=== PATIENT | female | born 1980 | race American Indian/Alaskan Native ===

== ENCOUNTER 2017-01-04 17:01 | Emergency (ER) | payer MEDICAID ==
--- NOTE | 2017-01-04 18:06 | Emergency Department Report ---
Entered by CLAIRE AGUILAR, acting as scribe for BATOOL RENE PA. Chief Complaint: Chest Pain Stated Complaint: CHEST PAIN Time Seen by Provider: 01/04/17 17:24 - HPI History of Present Illness: Pt c/o a vaginal discharge for 2 days. Patient states she had unprotected sex two weeks ago. After two days of intercourse, she began having a discharge. Pt states she was seen by a provider and prescribed antibiotics for bacterial vaginosis. She notes she took those left over antibiotics for this episode of vaginal discharge with no relief. Notes the vaginal discharge is similar to her bacterial vaginosis episode. Patient also c/o dull LLQ abdominal pain that radiates to her chest. Reports 7/ 10 left sided chest pain that also radiates down her left arm. Denies vaginal bleeding. Denies SOB Denies urinary urgency and frequency Notes she had an ovarian cyst that burst 3 months ago. Notes she has an IUD in place, which she's been having problems with. PMHx of asthma Denies PMHx of HTN and CAD - ROS Review of Systems: All system are negative unless stated in HPI above. - Exam Vital Signs: Vital Signs 01/04/17 17:13 Temperature 98.4 F Pulse Rate 83 Respiratory 16 Rate Blood Pressure 120/71 O2 Sat by Pulse 99 Oximetry Physical Exam: General: well nourished, well developed, 36 year old female in no acute distress and nontoxic in appearance Abdomen: Soft, normal bowel sounds in all quadrants and negative CVA tenderness bilaterally. No guarding or rebound. Tender to palpation to LLQ Lungs: Clear to auscultation bilaterally, no rhonchi, wheezes, or rales. Normal work of breathing. No use of accessory muscles Extremities: No CCE. +2 pulses. No neurovascular compromise. No lower extremity swelling or tenderness. Chest/Cardiovascular: No chest wall tenderness or deformity. S1-S2, regular rate , regular rhythm. No murmurs. MSE screening note: Focused history and physical exam performed. Due to findings the following was ordered: see below ED Medical Decision Making - Medical Decision Making MDM: Patient screened by provider in triage area. Appropriate protocol initiated. Patient to be seen by another provider in fast track. ED Disposition for MSE Condition: Stable This documentation as recorded by the scribe,CLAIRE AGUILAR,accurately reflects the service I personally performed and the decisions made by me,BATOOL RENE PA.
[2017-01-04 18:27] LABS: Bilirubin,Urine NEG (Negative); Blood,Urine NEG (Negative); Ketones,Urine NEG (Negative); Leukocyte Esterase,Urine NEG (Negative); Mucus,Urine FEW /HPF; Nitrite,Urine NEG (Negative); Protein,Urine <15 mg/dL mg/dL (Negative); WBC,Urine < 1.0 /HPF (0.0-6.0)
[2017-01-04 18:49] LABS: Basophils % (Auto) 0.4 % (0.0-1.8); Eosinophils % (Auto) 5.7 % (0.0-4.3); Hematocrit 39.7 % (30.3-42.9); Hemoglobin 13.3 gm/dl (10.1-14.3); Mean Corpuscular HGB Conc 34 % (30-34); Mean Corpuscular Hemoglobin 32 pg (28-32); Mean Corpuscular Volume 94 fl (79-97); Platelet Count 258 K/mm3 (140-440); Red Cell Distribution Width 14.1 % (13.2-15.2); White Blood Count 8.2 K/mm3 (4.5-11.0)
[2017-01-04 19:09] LABS: Anion Gap 17 mmol/L; BUN/Creatinine Ratio 11.42; Blood Urea Nitrogen 8 mg/dL (7-17); Calcium 8.9 mg/dL (8.4-10.2); Carbon Dioxide 25 mmol/L (22-30); Chloride 101.9 mmol/L (98-107); Glucose 90 mg/dL (65-100); Lipase 30 units/L (13-60); Potassium 4.2 mmol/L (3.6-5.0); Sodium 140 mmol/L (137-145)
--- NOTE | 2017-01-04 22:07 | Emergency Department Report ---
HPI - General Chief Complaint: Chest Pain Time Seen by Provider: 01/04/17 21:03 - HPI HPI: This is a 36-year-old -[place] female presents to the emergency department with complaint of chest pain and some vaginal discharge. Patient says that she had sex with a new partner and was using protection but the condom broke. Since that time she has been having some cloudy, yellowish knight discharge. She was treated in the past for bacterial vaginosis and thinks that it could be the same and therefore she took some leftover Flagyl she had. Since that time she started having some left-sided chest pain that has been going on for the past 1.5 weeks. She denies any shortness of breath, back pain , nausea, vomiting or diaphoresis. No recent travel or sick contacts at home. She denies tobacco or illicit drug use or abuse. Her primary care physician is Dr. Ingram and her CRUDE TESTER is Dr. Murillo. ED Past Medical Hx - Past Medical History Previous Medical History?: Yes Hx Hypertension: No Hx Congestive Heart Failure: No Hx Diabetes: No Hx Deep Vein Thrombosis: No Hx Renal Disease: No Hx Sickle Cell Disease: No Hx Seizures: No Hx Asthma: Yes Hx COPD: No Hx HIV: No - Surgical History Past Surgical History?: Yes Additional Surgical History: d&c - Social History Smoking Status: Current Every Day Smoker Substance Use Type: Alcohol - Medications Home Medications: Home Medications Medication Instructions Recorded Confirmed Last Taken Type Benzonatate [Tessalon Perles] 200 mg PO Q8HR PRN #15 capsule 11/24/14 01/04/17 Unknown Rx Fluticasone [Flonase] 1 spray NS QDAY #1 bottle 11/24/14 01/04/17 Unknown Rx traMADol [Ultram] 50 mg PO Q6HR PRN #12 tablet 11/24/14 01/04/17 Unknown Rx HYDROcodone/APAP 7.5-325 [[place] 1 each PO Q6HR PRN #12 tablet 05/13/15 01/04/17 Unknown Rx 7.5/325] Ondansetron [Zofran Odt] 4 mg SL Q6H PRN #8 tab.rapdis 05/13/15 01/04/17 Unknown Rx Cyclobenzaprine [Flexeril] 10 mg PO TID PRN #20 tablet 05/15/15 01/04/17 Unknown Rx metroNIDAZOLE 0.75% [Vandazole 1 applicator VG QHS #1 tube 01/05/17 Unknown Rx 0.75% VAGINAL] ED Review of Systems ROS: Stated complaint: CHEST PAIN Other details as noted in HPI Comment: All other systems reviewed and negative Constitutional: denies: chills, fever Eyes: denies: eye pain, eye discharge, vision change ENT: denies: ear pain, throat pain Respiratory: denies: cough, shortness of breath, wheezing Cardiovascular: chest pain. denies: palpitations Gastrointestinal: denies: abdominal pain, nausea, diarrhea Genitourinary: discharge. denies: dysuria, hematuria Musculoskeletal: denies: back pain, joint swelling, arthralgia Skin: denies: rash, lesions Neurological: denies: headache, weakness, paresthesias Physical Exam - Physical Exam Vital Signs: Vital Signs 01/04/17 01/04/17 01/04/17 17:13 18:43 18:45 Temperature 98.4 F Pulse Rate 83 76 72 Respiratory 16 12 Rate Blood Pressure 120/71 O2 Sat by Pulse 99 Oximetry 01/04/17 01/04/17 01/04/17 18:58 19:01 19:15 Temperature Pulse Rate 70 65 92 H Respiratory 18 12 23 Rate Blood Pressure 109/39 109/39 O2 Sat by Pulse 100 99 97 Oximetry 01/04/17 01/04/17 01/04/17 19:31 19:45 20:01 Temperature Pulse Rate 63 67 70 Respiratory 15 10 L 19 Rate Blood Pressure 109/39 109/39 109/39 O2 Sat by Pulse 98 98 99 Oximetry 01/04/17 01/04/17 01/04/17 20:15 20:31 20:45 Temperature Pulse Rate 70 67 60 Respiratory 14 20 11 L Rate Blood Pressure 109/39 109/39 109/39 O2 Sat by Pulse 98 99 100 Oximetry 01/04/17 01/04/17 21:01 21:15 Temperature Pulse Rate 67 63 Respiratory 11 L 11 L Rate Blood Pressure 109/39 109/39 O2 Sat by Pulse 99 100 Oximetry Physical Exam: GENERAL: The patient is well-developed well-nourished. HEENT: Normocephalic. Atraumatic. Extraocular motions are intact. Patient has moist mucous membranes. Pupils equal reactive to light bilaterally. NECK: Supple. Trachea is midline. CHEST/LUNGS: Clear to auscultation. There is no respiratory distress noted. HEART/CARDIOVASCULAR: Regular. There is no tachycardia. There is no gallop rub or murmur. ABDOMEN: Abdomen is soft, nontender. Patient has normal bowel sounds. There is no abdominal distention. SKIN: Skin is warm and dry. NEURO: The patient is awake, alert, and oriented. The patient is cooperative. The patient has no focal neurologic deficits. The patient has normal speech. MUSCULOSKELETAL: There is no tenderness or deformity. There is no limitation range of motion. There is no evidence of acute injury. : There is some malodorous thin white discharge seen in the vaginal vault. ED Course Vital Signs 01/04/17 01/04/17 01/04/17 17:13 18:43 18:45 Temperature 98.4 F Pulse Rate 83 76 72 Respiratory 16 12 Rate Blood Pressure 120/71 O2 Sat by Pulse 99 Oximetry 01/04/17 01/04/17 01/04/17 18:58 19:01 19:15 Temperature Pulse Rate 70 65 92 H Respiratory 18 12 23 Rate Blood Pressure 109/39 109/39 O2 Sat by Pulse 100 99 97 Oximetry 01/04/17 01/04/17 01/04/17 19:31 19:45 20:01 Temperature Pulse Rate 63 67 70 Respiratory 15 10 L 19 Rate Blood Pressure 109/39 109/39 109/39 O2 Sat by Pulse 98 98 99 Oximetry 01/04/17 01/04/17 01/04/17 20:15 20:31 20:45 Temperature Pulse Rate 70 67 60 Respiratory 14 20 11 L Rate Blood Pressure 109/39 109/39 109/39 O2 Sat by Pulse 98 99 100 Oximetry 01/04/17 01/04/17 21:01 21:15 Temperature Pulse Rate 67 63 Respiratory 11 L 11 L Rate Blood Pressure 109/39 109/39 O2 Sat by Pulse 99 100 Oximetry ED Medical Decision Making - Lab Data Result diagrams: 01/04/17 18:40 01/04/17 18:40 - EKG Data -: EKG Interpreted by Me EKG shows normal: sinus rhythm, axis, intervals, QRS complexes, ST-T waves Rate: normal - EKG Data When compared to previous EKG there are: previous EKG unavailable Interpretation: normal EKG - Radiology Data Radiology results: image reviewed interpreted by me: Chest x-ray did not show any acute process. Heart is normal shape and size. No effusions. No pneumothorax. No signs of pneumonia seen. - Medical Decision Making 36-year-old female presents the emergency department with 2 issues. First the patient thinks that she may be having bacterial vaginosis as she had some intercourse with a new partner and the condom broke and since then she's been having discharge. A pelvic exam was done and there was no lesions seen or any signs of PID. However there was some low-dose discharge that was tested on wet prep and positive for BV. Gonorrhea and chlamydia was sent and if positive the patient be contacted to be given Rocephin, azithromycin or doxycycline. The patient thinks that maybe her second complaint, the chest pain, started after she started the metronidazole pills and therefore we will try with the vaginal MetroGel instead. Regarding her chest discomfort, the patient was evaluated with physical exam, labs, imaging and EKG. Heart and lung sounds are normal auscultation. EKG did not show any signs of ST elevation OR. She has had negative troponins 2. She is very low on the heart score criteria. She has a YON score of 0. She is low on the Wells score criteria and negative on the pulmonary embolism rule out criteria. Probably reason the patient appears safe for discharge home. She will be given referral for cardiology for outpatient follow-up for her chest discomfort, which has been going on for almost 2 weeks, as well as from some complaints of palpitations. However she has been encouraged to return to the emergency department with any worsening of her symptoms or any acute distress. She understands and agrees to plan. - Differential Diagnosis costochondritis, OR, BV, Critical Care Time: No Critical care attestation.: If time is entered above; I have spent that time in minutes in the direct care of this critically ill patient, excluding procedure time. ED Disposition Clinical Impression: Bacterial vaginosis Chest pain Qualifiers: Chest pain type: unspecified Qualified Code(s): R07.9 - Chest pain, unspecified Disposition: DC-01 TO HOME OR SELFCARE Is pt being admited?: No Condition: Stable Instructions: Chest Pain (ED), Bacterial Vaginosis (ED) Additional Instructions: Please follow-up with a primary care physician or CRUDE TESTER in the next few days. I continue a referral for a local railroad signal and switch operator, Dr. Dinero, in case she would like to follow up regarding your chest pain and/or palpitations. Return to the emergency department with any worsening of her symptoms or any acute distress. The medication you have been prescribed for your bacterial vaginosis, Flagyl/ metronidazole, cannot be mixed with any alcohol or you will develop nausea, vomiting and/or further symptoms as there is a strong reaction between this medication and alcohol. Prescriptions: metroNIDAZOLE 0.75% [Vandazole 0.75% VAGINAL] 1 applicator VG QHS #1 tube Referrals: PRIMARY CARE, [Primary Care Provider] - 3-5 Days PATRICIA GARCIA MD [Staff Physician] - 3-5 Days Forms: STI Treatment and Prevention Time of Disposition: 00:16
[2017-01-05 00:44] VITALS: BP 100/65
--- NOTE | 2017-01-05 08:02 | XRay Report ---
CHEST TWO VIEWS: 01/04/17 19:13 CLINICAL: Chest pain and shortness of breath. COMPARISON: 05/15/15 FINDINGS: Normal heart and pulmonary vasculature. The lungs are normally expanded and clear. The bones and soft tissues are normal. IMPRESSION: Normal chest.
== END 2017-01-05 00:42 | disposition home or self-care (01) ==
LOC: ED 17:01
DX: N76.0 Acute vaginitis (principal); R07.9 Chest pain, unspecified; J45.909 Unspecified asthma, uncomplicated; F17.200 Nicotine dependence, unspecified, uncomplicated
CPT/HCPCS: 36415; 71020; 80048; 81001; 83690; 84484; 84703; 85025; 85379; 87210; 87591; 93005; 93010

== ENCOUNTER 2017-02-03 15:04 | Emergency (ER) | payer MEDICAID ==
[2017-02-03 15:41] VITALS: BP 126/72
[2017-02-03 16:04] LABS: Basophils % (Auto) 0.4 % (0.0-1.8); Hematocrit 39.4 % (30.3-42.9); Hemoglobin 13.5 gm/dl (10.1-14.3); Mean Corpuscular HGB Conc 34 % (30-34); Mean Corpuscular Hemoglobin 32 pg (28-32); Mean Corpuscular Volume 93 fl (79-97); Platelet Count 254 K/mm3 (140-440); Red Blood Count 4.25 M/mm3 (3.65-5.03); Red Cell Distribution Width 13.6 % (13.2-15.2); White Blood Count 7.9 K/mm3 (4.5-11.0)
[2017-02-03 16:28] LABS: Alanine Aminotransferase 14 units/L (7-56); Albumin 4.1 g/dL (3.9-5); Albumin/Globulin Ratio 1.3 %; Alkaline Phosphatase 72 units/L (35-129); Anion Gap 19 mmol/L; BUN/Creatinine Ratio 7.14; Blood Urea Nitrogen 5 mg/dL (7-17); Calcium 8.4 mg/dL (8.4-10.2); Carbon Dioxide 22 mmol/L (22-30); Chloride 103.2 mmol/L (98-107); Glucose 96 mg/dL (65-100); Potassium 3.7 mmol/L (3.6-5.0); Sodium 140 mmol/L (137-145); Total Protein 7.3 g/dL (6.3-8.2)
[2017-02-03 16:29] LABS: Bilirubin,Direct < 0.2 mg/dL (0-0.2); Bilirubin,Indirect 0.2 mg/dL
[2017-02-03 16:51] LABS: Bacteria,Urine 1+ /HPF (Negative); Bilirubin,Urine NEG (Negative); Blood,Urine NEG (Negative); Ketones,Urine NEG (Negative); Leukocyte Esterase,Urine NEG (Negative); Mucus,Urine 3+ /HPF; Nitrite,Urine NEG (Negative); Urobilinogen,Urine < 2.0 mg/dL (<2.0)
[2017-02-03] MEDS ORDERED: ZOFRAN ODT PO ONE (21:29)
--- NOTE | 2017-02-03 21:33 | Emergency Department Report ---
ED Abdominal Pain HPI - General Chief Complaint: Abdominal Pain Stated Complaint: CHILLS/DIARRHEA/SWEATS/ Time Seen by Provider: 02/03/17 21:01 Source: patient Mode of arrival: Ambulatory Limitations: No Limitations - History of Present Illness MD Complaint: abdominal pain -: Gradual Location: diffuse Radiation: none Severity: mild Severity scale (0 -10): 1 Quality: cramping Consistency: intermittent Improves With: nothing Worsens With: nothing Context: possible food poisoning Associated Symptoms: nausea, vomiting, diarrhea - Related Data Previous Rx's Medication Instructions Recorded Last Taken Type Benzonatate [Tessalon Perles] 200 mg PO Q8HR PRN #15 capsule 11/24/14 Unknown Rx Fluticasone [Flonase] 1 spray NS QDAY #1 bottle 11/24/14 Unknown Rx traMADol [Ultram] 50 mg PO Q6HR PRN #12 tablet 11/24/14 Unknown Rx HYDROcodone/APAP 7.5-325 [[place] 1 each PO Q6HR PRN #12 tablet 05/13/15 Unknown Rx 7.5/325] Cyclobenzaprine [Flexeril] 10 mg PO TID PRN #20 tablet 05/15/15 Unknown Rx metroNIDAZOLE 0.75% [Vandazole 1 applicator VG QHS #1 tube 01/05/17 Unknown Rx 0.75% VAGINAL] Ciprofloxacin HCl [Ciprofloxacin 500 mg PO Q12HR #6 tab 02/03/17 Unknown Rx TAB] Diphenoxylate HCl/Atropine 1 each PO BID #10 tablet 02/03/17 Unknown Rx [Lomotil 2.5-0.025 mg Tablet] Ondansetron [Zofran Odt] 4 mg SL Q6H PRN #8 tab.rapdis 02/03/17 Unknown Rx Allergies Allergy/AdvReac Type Severity Reaction Status Date / Time ibuprofen [From Motrin] Allergy Hives Verified 02/03/17 15:37 ED Review of Systems ROS: Stated complaint: CHILLS/DIARRHEA/SWEATS/ Other details as noted in HPI Comment: All other systems reviewed and negative ED Past Medical Hx - Past Medical History Hx Hypertension: No Hx Congestive Heart Failure: No Hx Diabetes: No Hx Deep Vein Thrombosis: No Hx Renal Disease: No Hx Sickle Cell Disease: No Hx Seizures: No Hx Asthma: Yes Hx COPD: No Hx HIV: No - Surgical History Additional Surgical History: d&c - Social History Smoking Status: Current Some Day Smoker Substance Use Type: None - Medications Home Medications: Home Medications Medication Instructions Recorded Confirmed Last Taken Type Benzonatate [Tessalon Perles] 200 mg PO Q8HR PRN #15 capsule 11/24/14 01/04/17 Unknown Rx Fluticasone [Flonase] 1 spray NS QDAY #1 bottle 11/24/14 01/04/17 Unknown Rx traMADol [Ultram] 50 mg PO Q6HR PRN #12 tablet 11/24/14 01/04/17 Unknown Rx HYDROcodone/APAP 7.5-325 [[place] 1 each PO Q6HR PRN #12 tablet 05/13/15 01/04/17 Unknown Rx 7.5/325] Cyclobenzaprine [Flexeril] 10 mg PO TID PRN #20 tablet 05/15/15 01/04/17 Unknown Rx metroNIDAZOLE 0.75% [Vandazole 1 applicator VG QHS #1 tube 01/05/17 Unknown Rx 0.75% VAGINAL] Ciprofloxacin HCl [Ciprofloxacin 500 mg PO Q12HR #6 tab 02/03/17 Unknown Rx TAB] Diphenoxylate HCl/Atropine 1 each PO BID #10 tablet 02/03/17 Unknown Rx [Lomotil 2.5-0.025 mg Tablet] Ondansetron [Zofran Odt] 4 mg SL Q6H PRN #8 tab.rapdis 02/03/17 Unknown Rx ED Physical Exam - General Limitations: No Limitations General appearance: alert, in no apparent distress - Head Head exam: Present: atraumatic, normocephalic - Eye Eye exam: Present: normal appearance - ENT ENT exam: Present: normal exam, normal orophraynx, mucous membranes moist - Neck Neck exam: Present: normal inspection - Respiratory Respiratory exam: Present: normal lung sounds bilaterally. Absent: respiratory distress - Cardiovascular Cardiovascular Exam: Present: regular rate, normal rhythm. Absent: systolic murmur, diastolic murmur, rubs, gallop - GI/Abdominal GI/Abdominal exam: Present: soft, normal bowel sounds - Extremities Exam Extremities exam: Present: normal inspection - Back Exam Back exam: Present: normal inspection - Neurological Exam Neurological exam: Present: alert, oriented X3 - Psychiatric Psychiatric exam: Present: normal affect, normal mood - Skin Skin exam: Present: warm, dry, intact, normal color. Absent: rash ED Course Vital Signs 02/03/17 15:39 Temperature 98.7 F Pulse Rate 67 Respiratory 17 Rate Blood Pressure 126/72 O2 Sat by Pulse 99 Oximetry ED Medical Decision Making - Lab Data Result diagrams: 02/03/17 15:47 02/03/17 15:47 - EKG Data When compared to previous EKG there are: no significant change Interpretation: no acute changes - Medical Decision Making No need for ivf at this time, better after zofran , likely dc and follow up. Critical care attestation.: If time is entered above; I have spent that time in minutes in the direct care of this critically ill patient, excluding procedure time. ED Disposition Clinical Impression: Diarrhea Disposition: DC-01 TO HOME OR SELFCARE Is pt being admited?: No Does the pt Need Aspirin: No Condition: Good Instructions: Abdominal Pain (ED) Prescriptions: Ciprofloxacin HCl [Ciprofloxacin TAB] 500 mg PO Q12HR #6 tab Diphenoxylate HCl/Atropine [Lomotil 2.5-0.025 mg Tablet] 1 each PO BID #10 tablet Ondansetron [Zofran Odt] 4 mg SL Q6H PRN #8 tab.rapdis PRN Reason: Nausea Referrals: PRIMARY CARE, [Primary Care Provider] - 3-5 Days Time of Disposition: 21:32
== END 2017-02-03 21:43 | disposition home or self-care (01) ==
LOC: ED 15:04
DX: R10.84 Generalized abdominal pain (principal); R11.2 Nausea with vomiting, unspecified; R19.7 Diarrhea, unspecified; J45.909 Unspecified asthma, uncomplicated; F17.200 Nicotine dependence, unspecified, uncomplicated; Z88.8 Allergy status to other drugs, medicaments and biological substances
CPT/HCPCS: 36415; 80048; 80074; 81001; 84703; 85025; 99283; Q0162

== ENCOUNTER 2017-07-30 13:13 | Emergency (ER) | payer MEDICAID ==
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
[2017-07-30 18:00] LABS: HCG Qualitative,Urine Negative (Negative)
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
[2017-07-30 20:35] VITALS: BP 115/78
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
== END 2017-07-30 20:37 | disposition home or self-care (01) ==
LOC: ED 13:13
DX: S52.691A Other fracture of lower end of right ulna, initial encounter for closed fracture (principal); S16.1XXA Strain of muscle, fascia and tendon at neck level, initial encounter; J45.909 Unspecified asthma, uncomplicated; F17.200 Nicotine dependence, unspecified, uncomplicated; Z88.8 Allergy status to other drugs, medicaments and biological substances
CPT/HCPCS: 72040; 72100; 81025

== ENCOUNTER 2017-07-30 21:21 | Emergency (ER) | payer MEDICAID ==
[2017-07-30 22:28] VITALS: BP 111/75
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
--- NOTE | 2017-07-31 00:20 | Cat Scan Report ---
FINAL REPORT EXAM: CT CERVICAL SPINE WO CON HISTORY: pain TECHNIQUE: Routine axial imaging was obtained of the cervical spine without IV contrast with sagittal and coronal reconstructions. FINDINGS: The disc heights and alignment appear normal. The canal size is normal. The nerve roots exit normally. The prevertebral soft tissues and C1-C2 articulation appear intact. IMPRESSION: Within normal limits.
--- NOTE | 2017-07-31 00:24 | Cat Scan Report ---
FINAL REPORT EXAM: CT THORACIC SPINE WO CON HISTORY: pain TECHNIQUE: Routine axial imaging was obtained of the thoracic spine without IV contrast with sagittal and coronal reconstructions FINDINGS: The disc heights and alignment appear normal. There is no evidence of fracture. The canal size is normal. The surrounding soft tissues are well maintained. IMPRESSION: Within normal limits.
== END 2017-07-31 01:16 | disposition home or self-care (01) ==
LOC: ED 21:21
DX: S16.1XXA Strain of muscle, fascia and tendon at neck level, initial encounter (principal); S39.012A Strain of muscle, fascia and tendon of lower back, initial encounter; J45.909 Unspecified asthma, uncomplicated; F17.200 Nicotine dependence, unspecified, uncomplicated; Z88.6 Allergy status to analgesic agent; Y08.89XA Assault by other specified means, initial encounter; Y93.89 Activity, other specified; Y92.89 Other specified places as the place of occurrence of the external cause; Y99.8 Other external cause status
CPT/HCPCS: 72125; 72128; 99283

== ENCOUNTER 2019-04-20 14:58 | Emergency (ER) | payer MEDICAID, OTHER ==
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
[2019-04-20 18:09] VITALS: BP 108/70
== END 2019-04-20 18:08 | disposition home or self-care (01) ==
LOC: ED 14:58
DX: M54.2 Cervicalgia (principal); M54.5 Low back pain; J45.909 Unspecified asthma, uncomplicated; F17.200 Nicotine dependence, unspecified, uncomplicated; Z88.6 Allergy status to analgesic agent; V49.49XA Driver injured in collision with other motor vehicles in traffic accident, initial encounter; Y93.89 Activity, other specified; Y92.410 Unspecified street and highway as the place of occurrence of the external cause; Y99.8 Other external cause status
CPT/HCPCS: 72040; 72100

== ENCOUNTER 2020-02-03 22:59 | Emergency (ER) | payer OTHER ==
[2020-02-04 00:31] VITALS: BP 126/75
--- NOTE | 2020-02-04 03:04 | Emergency Department Report ---
ED ENT HPI - General Chief complaint: Dental/Oral Stated complaint: TOOTHACHE Time Seen by Provider: 02/04/20 02:54 Source: patient Mode of arrival: Ambulatory Limitations: No Limitations - History of Present Illness Initial comments: 39-year-old -[place] female presents to the emergency room for left jaw pain since yesterday. Patient reports she is aware that she has some dental work that needs to be done. Patient denies any fever chills no nausea no vomiting. MD complaint: tooth pain Onset/Timin -: days(s) Location: tooth # (21,20,12,13) Severity: severe Severity scale (0 -10): 10 Quality: stabbing, aching, sharp, constant Consistency: constant Improves with: none Worsens with: none Associated Symptoms: denies: fever, cough, pain with swallowing, sore throat - Related Data Previous Rx's Medication Instructions Recorded Last Taken Type Ciprofloxacin HCl [Ciprofloxacin 500 mg PO Q12H #8 tab 04/18/18 Unknown Rx TAB] Dicyclomine HCl 20 mg PO BID PRN #10 tablet 04/18/18 Unknown Rx metroNIDAZOLE [Metronidazole] 500 mg PO TID #12 tablet 04/18/18 Unknown Rx Cyclobenzaprine HCl [Flexeril 5 MG 5 mg PO TID PRN #21 tab 04/20/19 Unknown Rx TAB] Ondansetron [Zofran Odt] 4 mg PO Q8HR PRN #14 tab.rapdis 04/20/19 Unknown Rx Acetaminophen/Codeine [Tylenol 1 tab PO Q6H PRN #14 tab 02/04/20 Unknown Rx /Codeine # 3 tab] Clindamycin [Clindamycin CAP] 300 mg PO Q8H 10 Days #30 cap 02/04/20 Unknown Rx Allergies Allergy/AdvReac Type Severity Reaction Status Date / Time ibuprofen [From Motrin] Allergy Hives Verified 07/30/17 13:56 ED Dental HPI - General Chief complaint: Dental/Oral Stated complaint: TOOTHACHE Time Seen by Provider: 02/04/20 02:54 Source: patient Mode of arrival: Ambulatory Limitations: No Limitations - Related Data Previous Rx's Medication Instructions Recorded Last Taken Type Ciprofloxacin HCl [Ciprofloxacin 500 mg PO Q12H #8 tab 04/18/18 Unknown Rx TAB] Dicyclomine HCl 20 mg PO BID PRN #10 tablet 04/18/18 Unknown Rx metroNIDAZOLE [Metronidazole] 500 mg PO TID #12 tablet 04/18/18 Unknown Rx Cyclobenzaprine HCl [Flexeril 5 MG 5 mg PO TID PRN #21 tab 04/20/19 Unknown Rx TAB] Ondansetron [Zofran Odt] 4 mg PO Q8HR PRN #14 tab.rapdis 04/20/19 Unknown Rx Acetaminophen/Codeine [Tylenol 1 tab PO Q6H PRN #14 tab 02/04/20 Unknown Rx /Codeine # 3 tab] Clindamycin [Clindamycin CAP] 300 mg PO Q8H 10 Days #30 cap 02/04/20 Unknown Rx Allergies Allergy/AdvReac Type Severity Reaction Status Date / Time ibuprofen [From Motrin] Allergy Hives Verified 07/30/17 13:56 ED Review of Systems ROS: Stated complaint: TOOTHACHE Other details as noted in HPI Comment: All other systems reviewed and negative ED Past Medical Hx - Past Medical History Previous Medical History?: Yes Hx Hypertension: No Hx Congestive Heart Failure: No Hx Diabetes: No Hx Deep Vein Thrombosis: No Hx Renal Disease: No Hx Sickle Cell Disease: No Hx Seizures: No Hx Asthma: Yes Hx COPD: No Hx HIV: No - Surgical History Past Surgical History?: Yes Additional Surgical History: d&c - Social History Smoking Status: Current Some Day Smoker Substance Use Type: None - Medications Home Medications: Home Medications Medication Instructions Recorded Confirmed Last Taken Type Ciprofloxacin HCl [Ciprofloxacin 500 mg PO Q12H #8 tab 04/18/18 Unknown Rx TAB] Dicyclomine HCl 20 mg PO BID PRN #10 tablet 04/18/18 Unknown Rx metroNIDAZOLE [Metronidazole] 500 mg PO TID #12 tablet 04/18/18 Unknown Rx Cyclobenzaprine HCl [Flexeril 5 MG 5 mg PO TID PRN #21 tab 04/20/19 Unknown Rx TAB] Ondansetron [Zofran Odt] 4 mg PO Q8HR PRN #14 tab.rapdis 04/20/19 Unknown Rx Acetaminophen/Codeine [Tylenol 1 tab PO Q6H PRN #14 tab 02/04/20 Unknown Rx /Codeine # 3 tab] Clindamycin [Clindamycin CAP] 300 mg PO Q8H 10 Days #30 cap 02/04/20 Unknown Rx ED Physical Exam - General Limitations: No Limitations General appearance: alert, in no apparent distress - Head Head exam: Present: atraumatic, normocephalic - Expanded ENT Exam Expanded Teeth exam: Present: dental tenderness # (12,13,21,20), gingival enlargement - Neurological Exam Neurological exam: Present: alert, oriented X3, normal gait - Psychiatric Psychiatric exam: Present: agitated - Skin Skin exam: Present: warm, dry, intact, normal color. Absent: rash ED Course Vital Signs 02/04/20 00:29 Temperature 99 F Pulse Rate 80 Respiratory 18 Rate Blood Pressure 126/75 [Left] O2 Sat by Pulse 98 Oximetry ED Medical Decision Making - Medical Decision Making 39-year-old -[place] female presents to the emergency room for left jaw pain since yesterday. Patient reports she is aware that she has some dental work that needs to be done. Patient denies any fever chills no nausea no vomiting. Patient be placed on clindamycin she can continue her for Tylenol for pain management. Critical care attestation.: If time is entered above; I have spent that time in minutes in the direct care of this critically ill patient, excluding procedure time. ED Disposition Clinical Impression: Dental abscess Disposition: DC-01 TO HOME OR SELFCARE Is pt being admited?: No Does the pt Need Aspirin: No Condition: Stable Instructions: Dental Abscess (ED) Additional Instructions: Complete antibiotics as prescribed take pain medication as needed. Do not operate heavy machinery while taking Tylenol 3. Follow-up with a dentist. Prescriptions: Clindamycin [Clindamycin CAP] 300 mg PO Q8H 10 Days #30 cap Acetaminophen/Codeine [Tylenol /Codeine # 3 tab] 1 tab PO Q6H PRN #14 tab PRN Reason: Pain Referrals: PRIMARY CARE, [Primary Care Provider] - 3-5 Days [facility] [Outside] - 3-[address] [facility] [Outside] - 3-5 Days Forms: Work/School Release Form(ED)
== END 2020-02-04 03:08 | disposition home or self-care (01) ==
LOC: ED 22:59
DX: K04.7 Periapical abscess without sinus (principal); J45.909 Unspecified asthma, uncomplicated; F17.200 Nicotine dependence, unspecified, uncomplicated; Z98.890 Other specified postprocedural states; Z79.2 Long term (current) use of antibiotics; Z79.899 Other long term (current) drug therapy; Z88.8 Allergy status to other drugs, medicaments and biological substances
CPT/HCPCS: 99282

== ENCOUNTER 2021-12-05 04:52 | Emergency (ER) | payer OTHER ==
[2021-12-05] MEDS ORDERED: diphenhydrAMINE 25 MG CAP PO ONE (10:38)
[2021-12-05] MEDS ORDERED: predniSONE 20 MG TAB PO ONE (10:38)
[2021-12-05] MEDS ORDERED: FAMOTIDINE 20 MG TAB PO ONE (10:38)
--- NOTE | 2021-12-05 10:53 | Emergency Department Report ---
- General Chief complaint: Skin Rash Stated complaint: STRESS HIVES/REACTIONS Time Seen by Provider: 12/05/21 10:11 Source: patient Mode of arrival: Ambulatory Limitations: No Limitations - History of Present Illness Initial comments: 41-year-old black female with no past medical history presents to the emergency department for evaluation of 7-day history of rash to bilateral arms, thighs, chest, and face. She states that she has not had any change in products but she did move from her home to a hotel room a few days before symptoms began. She states that initially when she developed a rash that it was hives and associated with some shortness of breath and chest tightness. She states that she took Benadryl at home which resolved her shortness of breath and chest tightness, but the rash has persisted since then. MD complaint: rash -: Gradual, days(s) (7) Location: face, neck, chest, LUE, RUE, LLE, RLE Associated symptoms: itching, shortness of breath Treatments Prior to Arrival: Benadryl - Related Data Previous Rx's Medication Instructions Recorded Last Taken Type Ciprofloxacin HCl [Ciprofloxacin 500 mg PO Q12H #8 tab 04/18/18 Unknown Rx TAB] Dicyclomine HCl 20 mg PO BID PRN #10 tablet 04/18/18 Unknown Rx metroNIDAZOLE [Metronidazole] 500 mg PO TID #12 tablet 04/18/18 Unknown Rx Cyclobenzaprine HCl [Flexeril 5 MG 5 mg PO TID PRN #21 tab 04/20/19 Unknown Rx TAB] Ondansetron [Zofran Odt] 4 mg PO Q8HR PRN #14 tab.rapdis 04/20/19 Unknown Rx Acetaminophen/Codeine [Tylenol 1 tab PO Q6H PRN #14 tab 02/04/20 Unknown Rx /Codeine # 3 tab] Clindamycin [Clindamycin CAP] 300 mg PO Q8H 10 Days #30 cap 02/04/20 Unknown Rx EPINEPHrine [Epipen 2-Ashish] 0.3 mg IJ ONCE PRN #1 pack 12/05/21 Unknown Rx Prednisone [predniSONE 10 mg 10 mg PO .TAPER #1 pack 12/05/21 Unknown Rx (6-Day Pack, 21 Tabs)] hydrOXYzine PAMOATE [Vistaril] 25 mg PO Q6HR PRN #30 capsule 12/05/21 Unknown Rx Allergies Allergy/AdvReac Type Severity Reaction Status Date / Time ibuprofen [From Motrin] Allergy Hives Verified 07/30/17 13:56 Abscess Boil HPI - HPI Chief Complaint: Skin Rash Stated Complaint: STRESS HIVES/REACTIONS Time Seen by Provider: 12/05/21 10:11 Home Medications: Previous Rx's Medication Instructions Recorded Last Taken Type Ciprofloxacin HCl [Ciprofloxacin 500 mg PO Q12H #8 tab 04/18/18 Unknown Rx TAB] Dicyclomine HCl 20 mg PO BID PRN #10 tablet 04/18/18 Unknown Rx metroNIDAZOLE [Metronidazole] 500 mg PO TID #12 tablet 04/18/18 Unknown Rx Cyclobenzaprine HCl [Flexeril 5 MG 5 mg PO TID PRN #21 tab 04/20/19 Unknown Rx TAB] Ondansetron [Zofran Odt] 4 mg PO Q8HR PRN #14 tab.rapdis 04/20/19 Unknown Rx Acetaminophen/Codeine [Tylenol 1 tab PO Q6H PRN #14 tab 02/04/20 Unknown Rx /Codeine # 3 tab] Clindamycin [Clindamycin CAP] 300 mg PO Q8H 10 Days #30 cap 02/04/20 Unknown Rx EPINEPHrine [Epipen 2-Ashish] 0.3 mg IJ ONCE PRN #1 pack 12/05/21 Unknown Rx Prednisone [predniSONE 10 mg 10 mg PO .TAPER #1 pack 12/05/21 Unknown Rx (6-Day Pack, 21 Tabs)] hydrOXYzine PAMOATE [Vistaril] 25 mg PO Q6HR PRN #30 capsule 12/05/21 Unknown Rx Allergies/Adverse Reactions: Allergies Allergy/AdvReac Type Severity Reaction Status Date / Time ibuprofen [From Motrin] Allergy Hives Verified 07/30/17 13:56 ED Review of Systems ROS: Stated complaint: STRESS HIVES/REACTIONS Other details as noted in HPI Comment: All other systems reviewed and negative Constitutional: denies: chills, fever Eyes: denies: eye pain ENT: denies: congestion Respiratory: shortness of breath. denies: cough Cardiovascular: chest pain. denies: palpitations, dyspnea on exertion, orthopnea, edema Gastrointestinal: denies: abdominal pain, nausea, vomiting Genitourinary: denies: urgency, dysuria, frequency, hematuria, discharge, dyspareunia Musculoskeletal: denies: back pain Skin: rash, pruritus. denies: lesions, change in color, change in hair/nails Neurological: denies: headache, weakness ED Past Medical Hx - Past Medical History Hx Hypertension: No Hx Congestive Heart Failure: No Hx Diabetes: No Hx Deep Vein Thrombosis: No Hx Renal Disease: No Hx Sickle Cell Disease: No Hx Seizures: No Hx Asthma: Yes Hx COPD: No Hx HIV: No - Surgical History Additional Surgical History: d&c - Social History Smoking Status: Current Some Day Smoker Substance Use Type: None - Medications Home Medications: Home Medications Medication Instructions Recorded Confirmed Last Taken Type Ciprofloxacin HCl [Ciprofloxacin 500 mg PO Q12H #8 tab 04/18/18 Unknown Rx TAB] Dicyclomine HCl 20 mg PO BID PRN #10 tablet 04/18/18 Unknown Rx metroNIDAZOLE [Metronidazole] 500 mg PO TID #12 tablet 04/18/18 Unknown Rx Cyclobenzaprine HCl [Flexeril 5 MG 5 mg PO TID PRN #21 tab 04/20/19 Unknown Rx TAB] Ondansetron [Zofran Odt] 4 mg PO Q8HR PRN #14 tab.rapdis 04/20/19 Unknown Rx Acetaminophen/Codeine [Tylenol 1 tab PO Q6H PRN #14 tab 02/04/20 Unknown Rx /Codeine # 3 tab] Clindamycin [Clindamycin CAP] 300 mg PO Q8H 10 Days #30 cap 02/04/20 Unknown Rx EPINEPHrine [Epipen 2-Ashish] 0.3 mg IJ ONCE PRN #1 pack 12/05/21 Unknown Rx Prednisone [predniSONE 10 mg 10 mg PO .TAPER #1 pack 12/05/21 Unknown Rx (6-Day Pack, 21 Tabs)] hydrOXYzine PAMOATE [Vistaril] 25 mg PO Q6HR PRN #30 capsule 12/05/21 Unknown Rx ED Physical Exam - General Limitations: No Limitations General appearance: alert, in no apparent distress - Head Head exam: Present: atraumatic, normocephalic - Eye Eye exam: Present: normal appearance. Absent: conjunctival injection - ENT ENT exam: Present: normal exam, normal orophraynx, mucous membranes moist - Expanded ENT Exam Expanded Mouth exam: Present: normal external inspection, tongue normal. Absent: drooling - Neck Neck exam: Present: normal inspection. Absent: tenderness, lymphadenopathy - Respiratory Respiratory exam: Present: normal lung sounds bilaterally. Absent: respiratory distress, wheezes, rales, rhonchi, stridor, chest wall tenderness - Cardiovascular Cardiovascular Exam: Present: regular rate, normal heart sounds - Expanded Cardiovascular Exam Expanded 1 - Diffuse papular rash noted - GI/Abdominal GI/Abdominal exam: Present: soft, normal bowel sounds. Absent: distended, tenderness, guarding, rebound, rigid - Extremities Exam Extremities exam: Absent: normal inspection - Expanded Lower Extremity Exam Left Upper Leg exam: Absent: normal inspection (Diffuse papular rash noted ), tenderness, swelling Neuro vascular tendon exam: Present: no vascular compromise. Absent: pulse deficit, abnormal cap refill, extremity cold to touch, pallor Right Upper Leg exam: Absent: normal inspection (Diffuse papular rash noted ), tenderness, swelling Neuro vascular tendon exam: Present: no vascular compromise. Absent: pulse deficit, abnormal cap refill, extremity cold to touch, pallor Gait: Positive: observed and normal - Back Exam Back exam: Present: normal inspection - Neurological Exam Neurological exam: Present: alert, oriented X3 - Skin Skin exam: Present: warm, dry, intact, normal color, rash ED Course Vital Signs 12/05/21 12/05/21 05:36 10:58 Temperature 98.4 F 97.8 F Pulse Rate 73 78 Respiratory 18 14 Rate Blood Pressure 122/79 Blood Pressure 108/64 [Left] O2 Sat by Pulse 98 98 Oximetry ED Medical Decision Making - Medical Decision Making 41-year-old black female with no past medical history presents to the emergency department for evaluation of 7-day history of rash to bilateral arms, thighs, chest, and face. She states that she has not had any change in products but she did move from her home to a hotel room a few days before symptoms began. She states that initially when she developed a rash that it was hives and associated with some shortness of breath and chest tightness. She states that she took Benadryl at home which resolved her shortness of breath and chest tightness, but the rash has persisted since then. Rash noted on assessment. Patient treated with one time dose of prednisone 60mg po, benadryl 25mg po, and pepcid 40mg while in ed then d/gabo home with prednisone dose pack, vistaril, and epi pen and advised to follow up with an sugar cane farm manager for further evaluation and management. She was advised to return to Ed as needed. She verbalized understanding of and agreement with plan of care. Critical care attestation.: If time is entered above; I have spent that time in minutes in the direct care of this critically ill patient, excluding procedure time. ED Disposition Clinical Impression: Contact dermatitis Qualifiers: Contact dermatitis type: unspecified Contact dermatitis trigger: unspecified trigger Qualified Code(s): L25.9 - Unspecified contact dermatitis, unspecified cause Disposition: HOME / SELF CARE / HOMELESS Is pt being admited?: No Does the pt Need Aspirin: No Condition: Stable Instructions: Contact Dermatitis, [id number] Additional Instructions: Take medications as prescribed. Follow-up with sugar cane farm manager for further evaluation and management. Return to the ER as needed. Prescriptions: EPINEPHrine [Epipen 2-Ashish] 0.3 mg IJ ONCE PRN #1 pack PRN Reason: Anaphylaxis Prednisone [predniSONE 10 mg (6-Day Pack, 21 Tabs)] 10 mg PO .TAPER #1 pack hydrOXYzine PAMOATE [Vistaril] 25 mg PO Q6HR PRN #30 capsule PRN Reason: Itching Referrals: VALARIE FOUNTAIN MD [Staff Physician] - 3-5 Days Forms: Work/School Release Form(ED) Time of Disposition: 11:17
[2021-12-05 10:59] VITALS: BP 108/64
== END 2021-12-05 11:32 | disposition home or self-care (01) ==
LOC: ED 04:52
DX: L25.9 Unspecified contact dermatitis, unspecified cause (principal); J45.909 Unspecified asthma, uncomplicated; Z88.6 Allergy status to analgesic agent; Z79.899 Other long term (current) drug therapy
CPT/HCPCS: 99282